=== PATIENT | female | born 1955 ===

== ENCOUNTER 2019-12-14 07:15 | Day surgery (SDC) | payer OTHER ==
[~2019-12-14 07:15] MED LIST: COZAAR100 MG PO; SIMVASTATIN10 MG PO; TOPROL XL50 M1 PO
[2019-12-14] MEDS ORDERED: PERCOCET 5-3251 EACH PO (10:27)
[2019-12-14] MEDS ORDERED: COLACE100 MG PO (10:27)
[2019-12-14] MEDS ORDERED: CIPRO500 MG PO (10:27)
== END 2019-12-14 16:35 | disposition home or self-care (01) ==
LOC: CIR.AMB 07:15
PROVIDERS: ATTEND Surgery
DX: K62.89 Other specified diseases of anus and rectum (principal); K64.8 Other hemorrhoids

== ENCOUNTER 2020-01-08 09:00 | Emergency (ER) | payer OTHER ==
[~2020-01-08] VITALS: Ht 162.6 cm; Wt 70.8 kg
[~2020-01-08 09:00] MED LIST changes: +CIPRO500 MG PO; +COLACE100 MG PO; +PERCOCET 5-3251 EACH PO
== END 2020-01-08 11:27 | disposition home or self-care (01) ==
LOC: ER 09:00
DX: R10.2 Pelvic and perineal pain (principal)